=== PATIENT | female | born 1975 | race African-American/Black ===

== ENCOUNTER → 2018-11-17 | Outpatient (CLI) | payer BC ==
--- NOTE | 2018-11-17 13:02 | KCIC ---
PELVIS W/TV History: Uterine prolapse, painful intercourse Comparison: None. Findings: Multiple transabdominal sonographic images of the pelvis are submitted. Endometrium is estimated about 0.7 cm in thickness. There is mass of the posterior uterus about 5.5 x 6.9 x 4.5 cm. Neither ovary is well visualized. Transvaginal ultrasound: Multiple transvaginal sonographic images of pelvis are submitted. Uterus measured 10.3 x 7.5 cm x 7.3 cm. Endometrium measured about 1.4 cm. Neither ovary could be visualized. There is very small quantity of free fluid in the posterior cul-de-sac. There is a solid mass of the posterior uterus more eccentric to the right about 6.8 x 5.4 x 7.1 cm, some exophytic extent. There is another mass closer to the fundus about 4.2 x 3.7 x 3 cm in size. There are nabothian cysts with largest about 1 cm. Impression: 1. There are 2 uterine masses more likely due to fibroids. 2. Neither ovary could be visualized. 3. There is trace quantity of free fluid. 4. Endometrium is somewhat thickened about 1.4 cm, hyperplasia possible, neoplasm not excluded although considered less likely. Electronically signed by: Santo Molina MD (11/17/2018 12:59 PM) [facility]
--- NOTE | 2018-11-21 10:02 | KCIC ---
Bilateral digital screening mammograms with 3-D tomosynthesis: Reason for examination: Routine screening. Comparison is made to previous study dated 01/27/2015. Bilateral mammograms in CC and oblique projections were obtained with 2-D imaging and 3-D tomosynthesis imaging on a Siemens Inspiration unit and reviewed on the workstation. Interpretation was made with the benefit of CAD. The skin and nipples show no abnormalities. No abnormal axillary lymph nodes are seen. The breast parenchyma is extremely dense. (Breast density: Category D.) There are small circumscribed nodules with fatty huong consistent with intramammary lymph nodes in the lateral right breast. In the left breast however, there is a nodular density located at approximately the 5:00 position measuring approximately 1.4 cm in greatest dimension and located approximately 5 cm from the nipple. There is a 9 mm nodule at the 4:00 position 7 cm from the nipple and there is a 6 mm nodule at the 3:00 position 5 cm from the nipple. Further evaluation with ultrasound is recommended. There are no suspicious calcifications or architectural distortion. Impression: Small cyst nodules in the lower outer quadrant of the left breast at 3:00, 4:00 and 5:00 positions measuring 6, 9 and 14 mm in greatest dimensions respectively. Recommend further evaluation with ultrasound. Your patient's mammogram demonstrates that she has dense breast tissue (breast density category C or D), which could hide abnormalities, and if she has other risk factors for breast cancer that have been identified, she might benefit from supplemental screening tests that may be suggested by you as her ordering physician. Dense breast tissue, in and of itself, is a relatively common condition. Therefore, this information is not provided to cause undue concern, but rather to raise your awareness and to promote discussion with your patient regarding the presence of other risk factors, in addition to dense breast tissue. Your patient's mammography results will be sent to her. BI-RAD Category 0: Incomplete. Needs additional imaging evaluation. "Our facility is accredited by the [employer] Mammography Program." This patient's information has been entered into a reminder system for the patient to be notified with the results of her examination and a target date for the next mammogram. Electronically signed by: Rosaura Abreu MD (11/21/2018 9:59 AM) [facility]
== END | disposition home or self-care (01) ==
LOC: KCIC US 11:10
PROVIDERS: ATTEND Family Medicine
DX: Z12.31 Encounter for screening mammogram for malignant neoplasm of breast (principal); N81.4 Uterovaginal prolapse, unspecified
CPT/HCPCS: 76830; 76856; 77063; 77067

== ENCOUNTER → 2018-12-01 | Outpatient (CLI) | payer BC ==
--- NOTE | 2018-12-01 14:13 | KCIC ---
Left breast ultrasound: Reason for examination: Nodular densities on screening mammogram. Comparison is made to mammographic examination dated 11/17/2018. Ultrasound examination was performed with attention to the left lower outer quadrant and the axilla. In the 3:00 position 4 cm from the nipple, there is a small 6.9 mm fibrocystic lesion. In the 3:00 position 9 cm from the nipple, there is a 1.2 cm hypoechoic fibrocystic type lesion in parallel orientation. In the 4:00 position 7 cm from the nipple however there is a hypoechoic irregularly marginated lesion which appears to be taller than wide and measuring at least 8.5 mm in greatest dimension. Further evaluation with ultrasound-guided biopsy is recommended. In the 5:00 position 4 cm from the nipple, there is a small hypoechoic lesion measuring 4.3 mm in greatest dimension with a benign cystic/fibrocystic appearance. In the 5:00 position 5 cm from the nipple, there are 2 additional small fibrocystic lesions with the largest measuring 5.1 mm in greatest dimension. No abnormal appearing lymph nodes are seen in the axilla. IMPRESSION: Hypoechoic irregularly marginated lesion at the 4:00 position 7 cm from the nipple measuring at least 8.5 mm in greatest dimension. Further evaluation with ultrasound-guided biopsy is recommended. BI-RADS Category 4: Suspicious. These findings were discussed with the patient and she was advised to follow-up with her clinician and Dr. Torres's nurse, Sherrie, was notified about these findings at 1355 on 12/01/2018. "Our facility is accredited by the [employer] Mammography Program." Electronically signed by: Rosaura Abreu MD (12/01/2018 2:10 PM) [facility]
== END | disposition home or self-care (01) ==
LOC: KCIC US 12:20
PROVIDERS: ATTEND Family Medicine
DX: N64.89 Other specified disorders of breast (principal)
CPT/HCPCS: 76641

== ENCOUNTER → 2018-12-29 | Outpatient (CLI) | payer BC ==
[~2018-12-29] MED LIST: ASPI-621 PO; NAPR-514 PO; OXYC1TAB15 PO
--- NOTE | 2018-12-30 16:06 | PATHOLOGY ---
[facility] Accession Number: [id number] . 01 Material submitted: . breast - LEFT BREAST MASS, 4:00, 7CMFN. Modifiers: left, 4:00 . 01 Clinical history: . Left breast mass 4:00 7 cmFN 9 mm . 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 - Florid ductal epithelial hyperplasia. - No evidence of atypia or malignancy. . (Please see comment) . (ADRIANA:bettie; 12/30/2018) [facility]/12/30/2018 . 02 Comment: This case has also been reviewed by Dr. Vel Montero who agrees with the diagnosis. . (SKM:mmargentina; 12/30/2018) . 02 Electronically signed: . Stanley Alvarado MD, Pathologist NPI- [id number] . 01 Gross description: . The specimen is received in formalin, labeled "Indu Gr, Lt breast" and consists of multiple needle cores of yellow tissue measuring between 0.1 cm and 2.0 cm in length and ranging from 0.1-0.4 cm in diameter. They are entirely submitted in A1-A3. The specimen was obtained at 8:30 AM on 12/29/2018 and placed in formalin at 8:31 AM. The cold ischemic time is 1 minute and the total formalin fixation time is greater than 6 hours but less than 72 hours. (SDY; 12/29/2018) SYU/SYU . 02 Pathologist provided ICD-10: D24.2, N62 . 02 CPT . 632423 Specimen Comment: A courtesy copy of this report has been sent to Specimen Comment: [phone], , . Specimen Comment: Report sent to ,DR ROONEY / DR STOVALL Performed at: 01 [facility] [address] [id number] MD Kofi Wolfe MD Phone: [phone] Performed at: [address] [id number] MD Braulio Munoz MD Phone: [phone]
--- NOTE | 2019-01-26 08:24 | RAD ---
Ultrasound-guided left breast biopsy, 12/29/2018: History: Suspicious breast nodule An outside ultrasound study demonstrated a poorly marginated vague hypoechoic abnormality at the 4:00 location approximately 7 cm from the nipple. Under local anesthesia, aseptic conditions and sonographic guidance the RisparmioSuper biopsy instrument was passed into this process via a lateral approach. Multiple 12-gauge vacuum-assisted core samples were obtained. A biopsy marker was then deposited the biopsy site. The biopsy instrument was removed and hemostasis obtained. Two-view postprocedural digital mammograms were then obtained to document the position of the biopsy marker. The patient tolerated the procedure well and left the department in good condition. Note is made that the outside ultrasound study demonstrated several other left breast nodules, considered to be probably benign. Note: The subsequent pathology report indicated the presence of a fibroadenoma as well as ductal epithelial hyperplasia. There was no evidence of atypia or malignancy. Follow-up left mammography and left breast ultrasound in 6 months is suggested MTDD
--- NOTE | 2019-02-09 10:09 | RAD ---
Ultrasound-guided left breast biopsy, 12/29/2018: History: Suspicious breast nodule An outside ultrasound study demonstrated a poorly marginated vague hypoechoic abnormality at the 4:00 location approximately 7 cm from the nipple. Under local anesthesia, aseptic conditions and sonographic guidance the [place] biopsy instrument was passed into this process via a lateral approach. Multiple 12-gauge vacuum-assisted core samples were obtained. A biopsy marker was then deposited the biopsy site. The biopsy instrument was removed and hemostasis obtained. Two-view postprocedural digital mammograms were then obtained to document the position of the biopsy marker. The patient tolerated the procedure well and left the department in good condition. Note is made that the outside ultrasound study demonstrated several other left breast nodules, considered to be probably benign. Note: The subsequent pathology report indicated the presence of a fibroadenoma as well as ductal epithelial hyperplasia. There was no evidence of atypia or malignancy. Follow-up left mammography and left breast ultrasound in 6 months is suggested MTDD
== END | disposition home or self-care (01) ==
LOC: US 07:34
PROVIDERS: ATTEND Surgery
DX: D24.2 Benign neoplasm of left breast (principal)
CPT/HCPCS: 19083; 77065; 88305; C1713; 76942

== ENCOUNTER → 2019-02-19 | Outpatient (CLI) | payer BC ==
[~2019-02-19] MED LIST changes: -NAPR-514 PO; -OXYC1TAB15 PO
[2019-02-19 14:17] LABS: BASO % 1 % (0-3); EOS # 0.2 x10^3/uL (0.0-0.7); EOS % 3 % (0-3); HEMATOCRIT 36.9 % (36.0-47.0); HEMOGLOBIN 12.6 g/dL (12.0-15.5); LYMPH # 1.7 x10^3/uL (1.0-4.8); LYMPH % 28 % (24-48); MEAN CORPUSCULAR HEMOGLOBIN 32 pg (25-35); MEAN CORPUSCULAR HGB CONC 34 g/dL (31-37); MEAN CORPUSCULAR VOLUME 94 fL (79-100); MONO # 0.5 x10^3/uL (0.0-1.1); MONO % 7 % (0-9); NEUT # 3.8 x10^3/uL (1.8-7.7); NEUT % 61 % (31-73); PLATELET COUNT 260 x10^3/uL (140-400); RED BLOOD COUNT 3.95 x10^6/uL (3.50-5.40); RED CELL DISTRIBUTION WIDTH 13.7 % (11.5-14.5); WHITE BLOOD COUNT 6.2 x10^3/uL (4.0-11.0)
--- NOTE | 2019-02-19 14:32 | EKG ---
[facility] [address] [place] [address] Test Date: 2019-02-19 Test Time: 14:26:55 Pat Name: RUBINA RUST Department: Room: Gender: F [employer] Operator: ABIEL : [id number] Requested By: TWAN COBURN Order Number: [id number] Reading MD: Twan Cazares Measurements Intervals [place] Rate: 95 P: -66 [place]: 106 QRS: -5 QRSD: 88 T: 41 QT: 356 QTc: 451 Interpretive Statements SINUS RHYTHM ATRIAL PREMATURE COMPLEX(ES) LEFTWARD AXIS NONSPECIFIC ST-T WAVE CHANGES. RI6.01 Unconfirmed report No previous ECG available for comparison Electronically Signed On 02-21-2019 11:51:42 CDT by Twan Cazares
[2019-02-19 14:40] LABS: CALCIUM 8.6 mg/dL (8.5-10.1); CREATININE 0.7 mg/dL (0.6-1.0); GFR 109.5; POTASSIUM 3.9 mmol/L (3.5-5.1)
--- NOTE | 2019-02-20 13:06 | NUR ---
FAXED PRE -OP LAB REPORTS AND EKG'S PRELIMINARY REPORT TO 'S OFFICE AT 0013 02/20/2019 AND RECEIVED TRANSMITTAL CONFIRMATION.
--- NOTE | 2019-02-23 12:09 | NUR ---
FAXED PRE-OP EKG'S FINAL REPORT TO 'S OFFICE AT 4518 02/23/2019 AND RECEIVED TRANSMITTAL CONFIRMATION. EKG'S PRELIMINARY AND FINAL REPORT REVIEWED BY DUSTIN FOX RN, ANESTHESIA TEAM AT 1000 02/23/2019 AND WAS OKAY HE SAID.
== END | disposition home or self-care (01) ==
LOC: SURGPAT 13:52
PROVIDERS: ATTEND Obstetrics & Gynecology
DX: Z01.818 Encounter for other preprocedural examination (principal)
CPT/HCPCS: 36415; 80048; 85025; 93005